=== PATIENT | female | born 1985 | race Caucasian/White ===

== ENCOUNTER → 2020-07-04 03:45 | Observation (INO) | END | disposition home or self-care (01) | LOC: 1NENULAB | PROVIDERS: ADMIT Registered Nurse; ATTEND Registered Nurse ==

== ENCOUNTER 2020-07-24 00:34 | Inpatient (IN) ==
[2020-07-24] MEDS ORDERED: Naloxone 0.4 MG/ML INJ IVP PRN ×2 (00:37→01:46)
[2020-07-24] MEDS ORDERED: Metoclopramide 10 MG/2 ML VIAL IVP PRN (00:37)
[2020-07-24] MEDS ORDERED: Lidocaine 1% 20 ML MDV INFILT PRN (00:37)
[2020-07-24] MEDS ORDERED: Famotidine 20 MG/2 ML VIAL IVP PRN (00:37)
[2020-07-24] MEDS ORDERED: *HR* Nalbuphine 10 MG/ML AMPUL IV PRN (00:37)
[2020-07-24] MEDS ORDERED: Oxytocin 20 units/ LR 1000 mL 20 UNIT/1,000 ML BAG IVC SCH ×3 (00:45→23:47)
[2020-07-24 01:07] LABS: Basophils % 0.5 %; Eosinophils # 0.1 K/mcL (0.0-0.6); Eosinophils % 1.3 %; Hematocrit 31.4 % (35.3-44.9); Hemoglobin 10.1 g/dL (11.5-15.4); Immature Granulocytes % 0.6 % (0-4); Lymphocytes # 1.1 K/mcL (0.6-4.6); Lymphocytes % 17.5 %; Mean Corpuscular HGB Conc 32.2 g/dL (31.6-35.5); Mean Corpuscular Hemoglobin 27.4 pg (28.0-33.3); Mean Corpuscular Volume 85.1 fL (83.0-100.0); Mean Platelet Volume 10.9 fL (9.4-12.4); Monocytes # 0.5 K/mcL (0.0-1.3); Monocytes % 7.2 %; Neutrophils # 4.6 K/mcL (1.6-8.9); Platelet Count 197 K/mcL (140-400); Red Blood Count 3.69 M/mcL (3.82-4.97); Red Cell Distribution Width 14.2 % (11.5-14.5); Segmented Neutrophils % 72.9 %; White Blood Count 6.3 K/mcL (4.3-11.1)
[2020-07-24] MEDS ORDERED: Penicillin G Potassium 5,000,000 UNIT in 0.9 % Sodium Chloride Mini Bag 100 ML IVPB ONE (01:34)
[2020-07-24] MEDS ORDERED: Ropivacaine/PF 0.2% 20 ML VIAL EP ONE (01:46)
[2020-07-24] MEDS ORDERED: EPHEDrine 50 MG/ML VIAL IVP PRN (01:46)
[2020-07-24] MEDS ORDERED: Ondansetron 4 MG/2 ML VIAL IVP PRN (01:46)
[2020-07-24] MEDS: Ringers Solution, Lactated 1,000 ML IVC SCH ×3 (01:51→14:04)
[2020-07-24 02:24] LABS: Amphetamine Screen,Urine Negative ng/mL (Cutoff=1000); Barbiturate Screen,Urine Negative ng/mL (Cutoff=200); Benzodiazepines Screen,Urine Negative ng/mL (Cutoff=200); Cannabinoid Screen,Urine Negative ng/mL (Cutoff = 50); Cocaine Screen,Urine Negative ng/mL (Cutoff= 300); Opiate Screen,Urine Negative ng/mL (Cutoff=300); Phencyclidine Screen,Urine Negative ng/mL (Cutoff=25)
[2020-07-24] MEDS: miSOPROStoL 25 MCG TABLET PO PRN ×2 (02:33→07:38)
[2020-07-24 03:21] LABS: Influenza A PCR Negative (Negative); Influenza B PCR Negative (Negative); Resp. Syncytial Virus PCR Negative (Negative)
[2020-07-24 03:26] LABS: SARS-CoV-2 by PCR (In House) Negative (Negative)
[2020-07-24 04:09] LABS: Hepatitis B Surface Antigen Nonreactive (Nonreactive)
[2020-07-24 04:37] LABS: HIV-1&2 Antibody & p24 Ag Nonreactive (Nonreactive)
[2020-07-24 04:40] LABS: Rubella IgG Antibody Negative (POSITIVE); Varicella Zoster IgG Antibody Positive
[2020-07-24] MEDS: Penicillin G Potassium 2,500,000 UNIT/105 ML MLS IVPB SCH ×4 (06:22→19:40)
[2020-07-24 09:41] LABS: Hepatitis C Virus Antibody Reactive (Nonreactive)
[2020-07-24] MEDS: Epidural Premix (fent/bupiv) 110 ML EP SCH ×2 (14:03→20:34)
[2020-07-24] MEDS ORDERED: *HR* FentaNYL (PF) 100 MCG/2 ML VIAL ONE (14:14)
[2020-07-24] MEDS ORDERED: Ropivacaine/PF 0.2% 20 ML VIAL ONE (14:14)
[2020-07-24] MEDS ORDERED: Sennosides 8.6 MG TABLET PO PRN (23:47)
[2020-07-24] MEDS ORDERED: Benzocaine/Menthol 56 GM AEROSOL SPRAY TP PRN (23:47)
[2020-07-24] MEDS ORDERED: Lanolin 7 G OINT...G. TP PRN (23:47)
[2020-07-24] MEDS ORDERED: Acetaminophen 325 MG TABLET PO PRN (23:47)
[2020-07-25] MEDS: Ibuprofen 600 MG TABLET PO PRN ×2 (00:35→20:08)
[2020-07-25 05:02] LABS: Basophils % 0.3 %; Eosinophils % 0.4 %; Hematocrit 29.8 % (35.3-44.9); Hemoglobin 9.4 g/dL (11.5-15.4); Immature Granulocytes % 0.6 % (0-4); Lymphocytes # 0.6 K/mcL (0.6-4.6); Lymphocytes % 8.1 %; Mean Corpuscular HGB Conc 31.5 g/dL (31.6-35.5); Mean Corpuscular Hemoglobin 27.2 pg (28.0-33.3); Mean Corpuscular Volume 86.1 fL (83.0-100.0); Mean Platelet Volume 11.1 fL (9.4-12.4); Monocytes # 0.6 K/mcL (0.0-1.3); Monocytes % 8.1 %; Neutrophils # 5.6 K/mcL (1.6-8.9); Platelet Count 134 K/mcL (140-400); Red Blood Count 3.46 M/mcL (3.82-4.97); Red Cell Distribution Width 14.3 % (11.5-14.5); Segmented Neutrophils % 82.5 %; White Blood Count 6.8 K/mcL (4.3-11.1)
[2020-07-25] MEDS: Prenatal Vit/FA 1 EACH TABLET PO SCH (07:47)
[2020-07-25] MEDS: Gabapentin 100 MG CAPSULE PO SCH ×2 (07:47→20:08)
[2020-07-25] MEDS: *HR* Buprenorphine HCl 8 MG TAB.SUBL SL SCH ×2 (07:48→20:08)
[2020-07-25] MEDS: BuPROPion SR (12 HR) 150 MG TABLET PO SCH ×2 (07:48→20:08)
[2020-07-25] MEDS ORDERED: Measles/Mumps/Rubella Vacc 0.5 ML VIAL SQ ONE (11:34)
[2020-07-26 07:53] VITALS: BP 112/56
[2020-07-26] MEDS: Prenatal Vit/FA 1 EACH TABLET PO SCH (08:08)
[2020-07-26] MEDS: BuPROPion SR (12 HR) 150 MG TABLET PO SCH (08:08)
[2020-07-26] MEDS: Gabapentin 100 MG CAPSULE PO SCH (08:08)
[2020-07-26] MEDS: *HR* Buprenorphine HCl 8 MG TAB.SUBL SL SCH (08:09)
[2020-07-26] MEDS: Ibuprofen 600 MG TABLET PO PRN (11:41)
== END 2020-07-26 11:56 | disposition home or self-care (01) | DRG 560 ==
LOC: 1NENULAB 00:34 → 1NENUOBS 07-25 00:45
PROVIDERS: ADMIT Obstetrics & Gynecology; ATTEND Obstetrics & Gynecology